=== PATIENT | female | born 1990 | race Caucasian/White ===

== ENCOUNTER 2024-01-14 11:45 | Outpatient (CLI) | payer MEDICAID | END 2024-01-14 12:00 | disposition home or self-care (01) | LOC: LAB.N 11:45 | PROVIDERS: ATTEND Specialist | DX: R07.0 Pain in throat (principal) | CPT/HCPCS: 87070 ==

== ENCOUNTER 2024-05-05 20:25 | Outpatient (CLI) | payer OTHER ==
--- NOTE | 2024-05-05 22:40 | Ultrasound Report ---
PROCEDURE: Pelvic w/Transvaginal INDICATIONS: AMENORRHEA TECHNIQUE: Real-time scanning was performed of the pelvic organs, with image documentation. Additional endovagi nal scanning was necessary due to incomplete visualization of the adnexal and endometrial structures by transabdominal scanning. COMPARISON: None. FINDINGS: Uterus: 6.5 x 3.3 x 4 cm. Anteverted positioning. Endometrium measures 7 mm, within normal limits for age Ovaries: Right ovary is enlarged measuring 26 cc. Dominant cyst measures 3.9 x 2.9 cm Enlarged left ovary measures 72 cc. Possible solid mass is seen in the left adnexa, borders are diffi cult to define. There may be complicated cystic component Other: Small amount free fluid is present. IMPRESSION: Suspicious left adnexal lesion, with enlarged left ovary measuring up to 72 cc Moderately enlarged right ovary with a dominant cyst measuring up to 3.9 cm. Pelvic MRI is recommended and gynecologic follow-up Reviewed by: Iggy James MD on 05/05/2024 10:39 PM PDT Approved by: Iggy James MD on 05/05/2024 10:39 PM PDT Station ID: [id number]
== END 2024-05-05 20:26 | disposition home or self-care (01) ==
LOC: DI 20:25
PROVIDERS: ATTEND Obstetrics & Gynecology
DX: N91.1 Secondary amenorrhea (principal); N83.8 Other noninflammatory disorders of ovary, fallopian tube and broad ligament

== ENCOUNTER 2024-05-22 07:01 | Outpatient (CLI) | payer OTHER ==
[2024-05-22] MEDS ORDERED: GADOTERATE MEGLUMINE 7.5 MMOL/15 ML VIAL ONE (07:03)
[2024-05-22] MEDS ORDERED: GADOTERATE MEGLUMINE 7.5 MMOL/15 ML VIAL IVP ONE (08:13)
--- NOTE | 2024-05-22 10:37 | MRI Report ---
PROCEDURE: Pelvis W/WO INDICATIONS: OVARIAN CYST CONTRAST: IV contrast TECHNIQUE: Coronal ultra fast SE, sagittal T2 FSE, axial T1 FSE, axial and coronal nonbreath-hold T2 FSE. Axial dynamic ultra fast GE during administration of contrast. Post-contrast axial and coronal ultra fast GE / 2-D spoiled GE with fat saturation from the iliac crests to the symphysis. Optional diffusion weighted imaging and ADC may be performed. COMPARISON: Ultrasound 05/05/2024 FINDINGS: Image quality: Diagnostic Lower abdomen: No bowel obstruction. No pathologic ascites in the lower abdomen. Bladder: Underdistended Reproductive organs: The endometrium measures 6 mm. The junctional zone measures 6 mm. These are with in normal limits. Cervix is unremarkable. Myometrium appears unremarkable. Mildly enlarged right ovary, with a simple appearing cyst measuring 3.2 x 2.5 cm. Other follicles are seen in the right ovary. No suspicious nodular enhancement. Moderately enlarged left ovary. Follicles are seen peripherally, however centrally, there is a diffus ion restricting mass measuring 4.7 x 3.8 x 4.4 cm. At the medial margin of the left ovary, there is a crescentic region of intrinsic T1 signal. Both ovaries are located behind the uterus. Rectum: Unremarkable Vessels and lymph nodes: No pathologic lymph nodes by size criteria. 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 A crescentic region of intrinsic T1 signal is seen at the medial margin of the left ovary adjacent to the mass, representing hemorrhagic components. Differential includes a mass arising from endometriom a. This was marked in PACS for follow-up and communication. Both ovaries are located behind the uterus, which may be related to adhesions from prior surgery or i nflammation such as endometriosis. No lymphadenopathy by size criteria within the pelvis, however consider dedicated staging imaging dep ending on pathology. Reviewed by: Iggy James MD on 05/22/2024 10:35 AM PDT Approved by: Iggy James MD on 05/22/2024 10:35 AM PDT Station ID: [id number]
== END 2024-05-22 07:02 | disposition home or self-care (01) ==
LOC: DI 07:01
PROVIDERS: ATTEND Obstetrics & Gynecology
DX: N83.9 Noninflammatory disorder of ovary, fallopian tube and broad ligament, unspecified (principal)